=== PATIENT | female | born 1995 | race Two or more races ===

== ENCOUNTER 2020-07-08 16:02 | Outpatient (CLI) | payer OTHER, SELFPAY ==
[~2020-07-08] VITALS: Ht 165.1 cm; Wt 78.6 kg
[2020-07-08 16:24] VITALS: BP 98/54
[2020-07-08] MEDS ORDERED: PRENTAB9 PO (16:25)
[2020-07-08 17:52] VITALS: BP 120/58
--- NOTE | 2020-07-08 18:39 | HPEPDOC ---
Obstetrical History & Physical General Date of Admission History of Present Illness decreased movement at 34.2 weeks. 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 pertinent history Past Medical History Surgical History: Denies/None Family History Significant Family History: No pertinent family hx Social History Marital Status: Family situation: Spouse/partner home Psychosocial History: No pertinent psych hx * Smoker: non-smoker Alcohol: Denies Drugs: denies Abuse Violence Screening Have you been hit/kicked/slapp: No Have you been sexually assault: No Imunizations Tdap status: needs Influenza Status: needs Allergies Coded Allergies: No Known Allergies (Unverified , 07/08/20) Medications Scheduled No.137/Iron/Folic Acd ( Vitamin Tablet) 1 Each Tablet, 1 TAB PO DAILY Physical Examination Physical Examination GENERAL: Alert and oriented times three. BREAST: . ABDOMEN: Gravid and non-tender to touch. FETUS: Is vertex fetus is vertex (VTX) by Ramy. HEART RATE: Regular rate and rhythm. LUNGS: Clear to auscultation (CTA). EXTREMITIES: No edema. No clonus. Deep tendon reflexes (DTRs) + . Vital Signs/I&O Vital Signs Date Time Temp Pulse Resp B/P (MAP) Pulse Ox O2 Delivery O2 Flow Rate FiO2 07/08/20 17:52 97.8 97 18 120/58 (78) Room Air 07/08/20 16:24 99 Pertinent Laboratoy Data Blood Type: B+ HIV: Negative Hepatitis B: Negative Rapid Plasma Reagin: Nonreactive Varicella: Immune Chlamydia/Gonorrhea: Negative Quad Screen Test: Negative Cystic Fibrosis: Negative Glucose Tolerance Test: 131 Anatomy Ultrasound Placenta Location: Anterior Normal Anatomy: Yes Placenta Previa: No Steroid Therapy Steroid Therapy: No Vaginal Examination Presentation: Cephalic presentation Assessment Variability: Moderate Accelerations: Positive Decelerations: None Tocometer Contractions: No Assessment/Plan Assessment 25 year-old at 34weeks by 14week ultrasound. Presents to Labor and Delivery (L&D) DECREASED MOVEMENT Plan . Labor and Delivery Counseling discharged undelivered appointment [facility] 07/14/20 precautions given Tarun Boyer MD Jul 08, 2020 18:31
== END 2020-07-08 18:05 | disposition home or self-care (01) ==
LOC: M LDO 16:02
PROVIDERS: ATTEND Obstetrics & Gynecology
DX: O36.8130 Decreased fetal movements, third trimester, not applicable or unspecified (principal); Z3A.34 34 weeks gestation of pregnancy
CPT/HCPCS: 59025; G0378; G0463

== ENCOUNTER 2020-08-07 14:15 | Inpatient (IN) | payer OTHER ==
[~2020-08-07] VITALS: Ht 165.1 cm; Wt 83.0 kg
[~2020-08-07 14:15] MED LIST: PRENTAB9 PO
[2020-08-07] MEDS ORDERED: miSOPROStol 50 MCG 1/2 TAB (S0191) PO ONE ×2 (15:15→20:00)
[2020-08-07 15:29] VITALS: BP 100/59
[2020-08-07 15:56] LABS: HEMATOCRIT 39.5 % (36.0-47.0); HEMOGLOBIN 13.1 g/dl (12.0-15.5); MEAN CORPUSCULAR HEMOGLOBIN 29.8 pg (27.0-33.0); MEAN CORPUSCULAR HGB CONC 33.2 g/dl (32.0-36.5); MEAN CORPUSCULAR VOLUME 89.8 fl (80.0-96.0); PLATELET COUNT, AUTOMATED 208 10^3/uL (150-450); WHITE BLOOD COUNT 9.7 10^3/uL (4.0-10.0)
--- NOTE | 2020-08-07 16:52 | HPEPDOC ---
Obstetrical History & Physical General Date of Admission Aug 07, 2020 at 14:15 History of Present Illness 25 yo at 38+4 weeks gestation by LMP of [id number] presents for IOL due to oligohydramnios. She was seen in the clinic today by [facility] Gretchen and she reported decreased movement. A US was performed which revealed oligohydramnios with an SAMIR of 3.3cm. Ms. Hudson reports feeling well and denies other complaints. She denies any vaginal bleeding or leakage of fluid or pelvic pain. She does, however, continue to report feeling decreased movement as compared to usual. 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 Past Medical History Medical History Denies Surgical History: Denies/None Family History Significant Family History: No pertinent family hx Social History Marital Status: Family situation: Spouse/partner home Psychosocial History: No pertinent psych hx * Smoker: non-smoker Alcohol: Denies Drugs: denies Imunizations Tdap status: needs Influenza Status: needs Allergies Coded Allergies: No Known Allergies (Unverified , 07/08/20) Medications Scheduled No.137/Iron/Folic Acd ( Vitamin Tablet) 1 Each Tablet, 1 TAB PO DAILY Physical Examination Physical Examination GENERAL: Alert and oriented times three. ABDOMEN: Gravid and non-tender to touch. FETUS: fetus is vertex (VTX) by Ramy. HEART RATE: Regular rate and rhythm. Bedside TAUS: Cephalic presenting . SAMIR 4.1cm. No pocket >2X2cm. Laboratory Data 24H LABS Laboratory Tests 2 08/07/20 14:27: Serology Scanned Report Hepatitis B Testing 08/07/20 15:44: Nucleated Red Blood Cells % (auto) 0.0, Syphilis Serology NONREACTIVE CBC/BMP Laboratory Tests 08/07/20 15:44 Urine Culture: Other Pertinent Laboratoy Data Blood Type: B+ RBC Antibody Screen: Negative HIV: Negative Hepatitis B: Negative Rapid Plasma Reagin: Nonreactive Rubella: Immune Varicella: Immune Chlamydia/Gonorrhea: Negative Group B Streptococcus: Negative Quad Screen Test: Unknown Cystic Fibrosis: Unknown Anatomy Ultrasound Placenta Location: Anterior Normal Anatomy: Yes Placenta Previa: No Vaginal Examination Dilation: None Effacement: 30% Station: -3 Cervical Consistency: Firm Cervical Position: Posterior Presentation: Cephalic presentation Position: Vertex (occiput) Assessment Heart Rate (FHR): 140 Variability: Moderate Accelerations: Positive Decelerations: None Tocometer Contractions: Yes Frequency: irregular Duration: less than 60 seconds Strength: palpated as mild Assessment/Plan Assessment 25 yo at 38+4 weeks gestation presenting for IOL for oligohydramnios and decreased movement. Plan Oligohydramnios confirmed by my bedside US. Admit for IOL. Apply IV fluids. GBS negative. Cervix closed. Will start IOL with cytotec. Regular diet. Epidural if and when desired. I discussed in detail the induction and delivery process. She is willing to accept a transfusion if necessary and consents to IOL and delivery. DO JUDY Desir CHRISTOPHER J. DO Aug 07, 2020 16:52
[2020-08-07 17:37] VITALS: BP 126/66
[2020-08-07 18:16] VITALS: BP 124/58
[2020-08-07 19:30] VITALS: BP 115/63
[2020-08-07 22:08] VITALS: BP 124/70
[2020-08-08] VITALS (7 sets, daily range): BP systolic 101–136; BP diastolic 56–85
--- NOTE | 2020-08-08 10:43 | IPNPDOC ---
Obstetrical Progress Note Date of Service Aug 08, 2020 Subjective 25yo at 38+6wks now HD#2 admitted for IOL for oligohydramnios. She reports she has eaten breakfast and showered. She reports feeling well at this time. Objective Vital Signs Date Time Temp Pulse Resp B/P (MAP) Pulse Ox O2 Delivery O2 Flow Rate FiO2 08/08/20 08:37 96.7 96 16 117/58 (77) Room Air Assessment Heart Rate Tracing: Category I Tocometer Contractions: Yes Frequency: irregular Sterile Vaginal Examination Dilation: Fingertip Effacement (%): 30% Station: -3 Cervical Consistency: Medium Cervical Position: Posterior Postion/Presentation: Cephalic presentation Assessment and Plan Status: Reassuring Group B Streptococcus: Negative Additional Comments Tonie has progressed to ft/thick/high after 2 doses of cytotec with last dose given at 1999 yesterday due to L&D acuity. FHRT cat I. Will repeat dose of cytotec now. Patient desires to proceed, safe to continue. DEB ZAPATA DO Aug 08, 2020 10:08
--- NOTE | 2020-08-08 20:48 | IPNPDOC ---
Obstetrical Progress Note Date of Service Aug 08, 2020 Subjective Patient reports feeling crampy rating her pain at times a 7 but currently at 4. She has been in/out of bed on remote monitoring to be ambulatory. She has been tolerating regular diet. Objective Vital Signs Date Time Temp Pulse Resp B/P (MAP) Pulse Ox O2 Delivery O2 Flow Rate FiO2 08/08/20 19:45 98.0 08/08/20 19:17 98 105/58 (74) 08/08/20 18:19 16 Room Air Assessment Heart Rate Tracing: Category I Tocometer Contractions: No Sterile Vaginal Examination Dilation: Fingertip Effacement (%): 30% Station: -3 Cervical Consistency: Medium Cervical Position: Posterior Assessment and Plan Status: Reassuring Additional Comments Patient has had no cervical change despite 2 additional doses of cytotec. FHRT cat I. [place] showing only rare ctx's. Patient counseled on mgmt options with my recommendation for cook catheter. She was amenable to the cook catheter which was placed with 60/60 in the intrauterine and vaginal bulbs. She desires to remain ambulatory at this time but is interested in pain control options. Will write for stadol/phenergan to be given when she requests with cook catheter in place. She may also request epidural if desired. Patient desires to proceed, safe to continue. DEB ZAPATA DO Aug 08, 2020 20:48
[2020-08-09] VITALS (53 sets, daily range): BP systolic 88–145; BP diastolic 50–79
--- NOTE | 2020-08-09 09:47 | IPNPDOC ---
Obstetrical Progress Note Date of Service Aug 09, 2020 Subjective Patient reports feeling well. She has eaten breakfast and is resting. She is ready to proceed with next step of induction. Objective Vital Signs Date Time Temp Pulse Resp B/P (MAP) Pulse Ox O2 Delivery O2 Flow Rate FiO2 08/09/20 09:07 91 16 103/60 (74) 08/09/20 07:07 98.2 08/08/20 21:26 Room Air Assessment Heart Rate Tracing: Category I Tocometer Contractions: Yes Frequency: greater than 15 min/apart Assessment and Plan Status: Reassuring Additional Comments 25yo at 38+4wks admitted for IOL for oligohydramnios. She has received 4 doses of cytotec and a cook catheter. The cook catheter fell out spontaneously at 0540 this morning. Since then patient has showered and eaten breakfast. RT cat I. Patient counseled on pitocin protocol and amenable to starting at this time. Plan to start pitocin protocol now and allow patient to get epidural when desired. Will defer SVE at this time until after epidural placement of clinical picture indicates. Patient desires to proceed, safe to continue. DEB ZAPATA DO Aug 09, 2020 09:47
[2020-08-09] MEDS ORDERED: FENTANYL 2MCG/ML ROPIVACAINE 0.2% IN 0.9% NACL 100ML IVBAG As Ordered ONE (14:48)
[2020-08-09] MEDS: FENTANYL/ROPIVACAINE/NACL BAG 100 ML EPIDURAL SCH (15:41)
[2020-08-09] MEDS ORDERED: EPIDURAL/PCA KEYS XX PRN (16:15)
[2020-08-09] MEDS ORDERED: NALOXONE INJ 0.4MG/1ML VIAL (J2310 PER 1MG) IV PRN (16:15)
[2020-08-09] MEDS ORDERED: ONDANSETRON 4MG/2ML VIAL IV PRN (16:15)
[2020-08-09] MEDS ORDERED: LACTATED RINGER'S 1000 ML IV PRN (16:15)
[2020-08-09] MEDS ORDERED: EPIDURAL COMMENT XX SCH (16:15)
[2020-08-09] MEDS ORDERED: REFRIGERATOR IV KEYS XX PRN (16:15)
[2020-08-09] MEDS ORDERED: ePHEDrine SULFATE 25 MG/5 ML(5MG/ML) SYRINGE IV PRN (16:15)
[2020-08-09] MEDS ORDERED: diphenhydrAMINE 50MG/ML VIAL (J1200) IV PRN (16:15)
--- NOTE | 2020-08-09 18:43 | IPNPDOC ---
Obstetrical Progress Note Date of Service Aug 09, 2020 Subjective Patient reports feeling very comfortable with epidural in place. Denies any concerns. Objective Vital Signs Date Time Temp Pulse Resp B/P (MAP) Pulse Ox O2 Delivery O2 Flow Rate FiO2 08/09/20 17:56 98.3 77 16 93/53 (66) 08/08/20 21:26 Room Air Assessment Heart Rate (FHR): 145 Variability: Moderate Accelerations: Positive Decelerations: None Heart Rate Tracing: Category I Tocometer Contractions: Yes (difficulty telling ctx's due to patient position) Frequency: other Sterile Vaginal Examination Dilation: 5 cm Effacement (%): 90% Station: -1 Cervical Consistency: Soft Cervical Position: Middle Postion/Presentation: Cephalic presentation Assessment and Plan Status: Reassuring Group B Streptococcus: Negative Anticipate: Vaginal Delivery Additional Comments Patient currently on pitocin protocol with pitocin at 14mU/min. FHRT cat I. SVE now 5/90/-1. AROM performed notable for clear fluid. IUPC placed for closer monitoring of ctx's to allow for safe titration of pitocin protocol due to difficulty tracing on external tocometry. Patient clinically doing well. Will continue pitocin protocol at this time with plan for expectant . Patient adam ires to proceed, safe to continue. DEB ZAPATA DO Aug 09, 2020 18:43
[2020-08-10] VITALS (17 sets, daily range): BP systolic 93–138; BP diastolic 51–82
--- NOTE | 2020-08-10 00:07 | IPNPDOC ---
Obstetrical Progress Note Date of Service Aug 10, 2020 Subjective Patient c/o burning pelvic pressure/pain. Objective Vital Signs Date Time Temp Pulse Resp B/P (MAP) Pulse Ox O2 Delivery O2 Flow Rate FiO2 08/09/20 18:58 68 16 99/58 (72) 08/09/20 17:56 98.3 08/08/20 21:26 Room Air Assessment Heart Rate (FHR): 160 Variability: Moderate Accelerations: None Decelerations: None Heart Rate Tracing: Category I Tocometer Contractions: Yes Frequency: every 1-3 min. Sterile Vaginal Examination Dilation: complete Effacement (%): 100% Station: +2 Cervical Consistency: Soft Cervical Position: Anterior Postion/Presentation: Cephalic presentation Assessment and Plan Status: Reassuring Group B Streptococcus: Negative Anticipate: Vaginal Delivery Additional Comments Patient has progressed to c/c/+2. FHRT cat I. Will begin pushing with RN at this time. Patient desires to proceed, safe to continue. DEB ZAPATA DO Aug 10, 2020 00:07
[2020-08-10] MEDS: FENTANYL/ROPIVACAINE/NACL BAG 100 ML EPIDURAL SCH (00:53)
[2020-08-10 03:34] LABS: CORD GAS ABE A -8.6; CORD GAS ABE V -2.9; CORD GAS HCO3 V 22.6 MEQ/L; CORD GAS O2 SAT A 41.5 %; CORD GAS O2 SAT V 78.1 %; CORD GAS PCO2 A 59.3 mmHg; CORD GAS PCO2 V 41.7 mmHg; CORD GAS PH A 7.167 UNITS; CORD GAS PH V 7.351 UNITS; CORD GAS PO2 A 22.9 mmHg; CORD GAS PO2 V 34.7 mmHg; CORD GAS SBC A 16.4 MEQ/L; CORD GAS SBC V 21.6 MEQ/L; CORD GAS TCO2 A 22.8 MEQ/L; CORD GAS TCO2 V 23.8 MEQ/L
--- NOTE | 2020-08-10 04:02 | DNPDOC ---
[facility] Delivery Note Delivery Note DATE OF DELIVERY: 08/10/2020 PREDELIVERY DIAGNOSIS: 1.) 38+6/7 weeks' gestation and labor 2.) Oligohydramnios POST DELIVERY DIAGNOSIS: Delivered. 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 Deb Zapata ANESTHESIA: Epidural. ESTIMATED BLOOD LOSS: 300mL. FINDINGS: 7pound 10 ounce 3480g female , Score 2/5/7, no nuchal cord. Terminal meconium appreciated with meconium plug identified. Placenta with clot on 5% of placenta. Infant head noted to have blistering and sloughing of 2cm area of caput prior to delivery. DELIVERY SUMMARY: Tonie is a 25yo at 38+6wks admitted for IOL for oligohydramnios. Patient progressed to c/c/+2 then began pushing. Patient was noted to have ineffective pushing after first hour therefore position changes and coaching at the bedside with significant improvement in pushing. Patient progressed spontaneously to c/c/+4 and asked for assistance, however, proceeded to have spontaneous vaginal delivery before operative vaginal delivery could be attempted. Presentation was OA with restitution to LOT with right shoulder anterior position. Anterior shoulder and body delivered without difficulty but did require aggressive pushing coaching with patient. delivered with poor tone. Attempted stimulation and drying with minimal improvement. After 30 seconds with no improvement to infant's status, three vessel cord clamped x2 and cut by FOB. then taken to warmer to awaiting Team for further resuscitation. Cord gases obtained. Pitocin IV bolus initiated. Third stage spontaneous with intact placenta noted to have marginal cord insertion and 5% placental abruption demonstrated by large dark clot. Fundal massage performed with firm uterine tone and hemostasis noted. Inspection revealed a 2nd degree perineal laceration that was repaired in routine fashion with 2-0 vicryl with good approximation of tissue and hemostasis noted. EBL 300ml. Mother stable in room upon my leaving. I nfant transferred to NICU for observation. DEB ZAPATA DO Aug 10, 2020 04:02
[2020-08-11 06:57] VITALS: BP 114/56
[2020-08-11] MEDS ORDERED: IBUP80TA PO (07:21)
[2020-08-11] MEDS ORDERED: ACET-683 PO (07:21)
[2020-08-11] MEDS ORDERED: AMER20OI TOP (07:21)
--- NOTE | 2020-08-11 07:31 | IPNPDOC ---
Progress Note Date of Service: Aug 11, 2020 Progress Note 25 yo G1 now P1 PPD#1 s/p uncomplicated on 10Aug2020 at ~0400 after being admitted for oligohydramnios and undergoing an IOL. Overnight, Becca reports doing well. She is ambulating, voiding spontaneously, and tolerating a regular diet. Lochia is minimal. Baby spent a brief period in the NICU due to low scores but is now rooming with mom. Vitals - VSS, afebrile General - AAOX3, sitting up in bed, NAD Abdomen - Fundus firm at U-2. No fundal tenderness Extremities - No edema Ms. Schilling is doing well and is making an appropriate recovery. If she continues to meet all criteria she will be a candidate for discharge tomorrow. Esvin Kim DO VS, I&O, 24H, Fishbone Vital Signs/I&O Vital Signs Date Time Temp Pulse Resp B/P (MAP) Pulse Ox O2 Delivery O2 Flow Rate FiO2 08/11/20 06:57 97.8 75 18 114/56 (75) 99 08/10/20 18:00 Room Air I&O- Last 24 Hours up to 6 AM 08/11/20 06:00 Intake Total 2750 ml Output Total 700 ml Balance 2050 ml ESVIN KIM DO Aug 11, 2020 07:31
== END 2020-08-11 16:00 | disposition home or self-care (01) | DRG 807 ==
LOC: M LDI 14:15 → M OBS 08-10 06:48
PROVIDERS: ADMIT Obstetrics & Gynecology
PROC: 3E0P7GC Introduction of Other Therapeutic Substance into Female Reproductive, Via Natural or Artificial Opening (ICD-10-PCS; 2020-08-07)
PROC: 0KQM0ZZ Repair Perineum Muscle, Open Approach (ICD-10-PCS; 2020-08-09)
PROC: 10907ZC Drainage of Amniotic Fluid, Therapeutic from Products of Conception, Via Natural or Artificial Opening (ICD-10-PCS; 2020-08-09)
PROC: 10E0XZZ Delivery of Products of Conception, External Approach (ICD-10-PCS; principal; 2020-08-10)
DX: O41.03X0 Oligohydramnios, third trimester, not applicable or unspecified (principal); Z37.0 Single live birth; Z3A.38 38 weeks gestation of pregnancy; O36.8130 Decreased fetal movements, third trimester, not applicable or unspecified; O70.1 Second degree perineal laceration during delivery

== ENCOUNTER 2020-09-04 14:23 | Emergency (ER) | payer OTHER ==
[~2020-09-04] VITALS: Ht 165.1 cm; Wt 74.3 kg
[~2020-09-04 14:23] MED LIST changes: +ACET-683 PO; +AMER20OI TOP; +IBUP80TA PO
[2020-09-04 16:15] LABS: BASO % 0.5 % (0.0-1.0); EOS # 0.5 10^3/uL (0.0-0.5); EOS % 6.4 % (0.0-3.0); HEMATOCRIT 41.8 % (36.0-47.0); HEMOGLOBIN 13.7 g/dl (12.0-15.5); LYMPH # 2.4 10^3/uL (1.5-5.0); LYMPH % 32.2 % (24.0-44.0); MEAN CORPUSCULAR HEMOGLOBIN 29.2 pg (27.0-33.0); MEAN CORPUSCULAR HGB CONC 32.8 g/dl (32.0-36.5); MEAN CORPUSCULAR VOLUME 89.1 fl (80.0-96.0); MONO # 0.6 10^3/uL (0.0-0.8); MONO % 7.7 % (0.0-5.0); NEUTROPHILS % 52.9 % (36.0-66.0); PLATELET COUNT, AUTOMATED 246 10^3/uL (150-450); RED BLOOD COUNT 4.69 10^6/uL (4.00-5.40); WHITE BLOOD COUNT 7.5 10^3/uL (4.0-10.0)
[2020-09-04 16:35] LABS: ALBUMIN 3.5 GM/DL (3.2-5.2); ALT/SGPT 27 U/L (12-78); BILIRUBIN,DIRECT < 0.1 MG/DL (0.0-0.2); BILIRUBIN,TOTAL 0.3 MG/DL (0.2-1.0); BLOOD UREA NITROGEN 16 MG/DL (7-18); CALCIUM LEVEL 9.7 MG/DL (8.5-10.1); CARBON DIOXIDE LEVEL 28 MEQ/L (21-32); CHLORIDE LEVEL 107 MEQ/L (98-107); CREATININE FOR GFR 0.75 MG/DL (0.55-1.30); GLOMERULAR FILTRATION RATE > 60.0 (>60); GLUCOSE, FASTING 94 MG/DL (70-100); LIPASE 268 U/L (73-393); POTASSIUM SERUM 4.1 MEQ/L (3.5-5.1); SODIUM LEVEL 142 MEQ/L (136-145); TOTAL PROTEIN 6.9 GM/DL (6.4-8.2)
[2020-09-04] MEDS ORDERED: CEPH500T PO ×2 (18:59→19:05)
[2020-09-04 19:02] VITALS: BP 101/59
--- NOTE | 2020-09-04 19:13 | REPVR ---
PROCEDURE INFORMATION: Exam: US Nonobstetric Pelvis; Complete Exam date and time: 09/04/2020 6:30 PM Age: 25 years old Clinical indication: Other: Vaginal bleeding; Additional info: 25 days pp/inc bleeding TECHNIQUE: Imaging protocol: Transabdominal pelvic nonobstetric ultrasound. Complete exam. Real time ultrasound with image documentation. COMPARISON: No relevant prior studies available. FINDINGS: Uterus/cervix: Uterus measures 9.6 x 5.1 x 6.9 cm. No retained products of conception are identified. The endometrium is not thickened measuring 2.8 mm in width. No fluid is seen in the endometrial canal. Right adnexa: The right ovary is not visualized. Left adnexa: Left ovary is normal appearance measuring 3.3 x 1.7 x 2.4 cm. Arterial flow is detected. Intraperitoneal space: No free fluid in the cul-de-sac. Urinary bladder: Unremarkable as imaged. IMPRESSION: Normal pelvic ultrasound examination. No retained products of conception are identified in the uterus. Electronically signed by: Aditi Garcia On 09/04/2020 19:13:49 PM
== END 2020-09-04 19:07 | disposition home or self-care (01) ==
LOC: M ED 14:23
DX: O72.1 Other immediate postpartum hemorrhage (principal); O86.20 Urinary tract infection following delivery, unspecified